=== PATIENT | male | born 1980 | race Caucasian/White ===

== ENCOUNTER 2018-04-14 10:19 | Emergency (ER) | payer BC ==
[~2018-04-14] VITALS: Ht 177.8 cm; Wt 113.4 kg
== END 2018-04-14 10:36 | disposition home or self-care (01) ==
LOC: ED 10:19
DX: T15.01XA Foreign body in cornea, right eye, initial encounter (principal); R03.0 Elevated blood-pressure reading, without diagnosis of hypertension; Z23 Encounter for immunization; Z88.1 Allergy status to other antibiotic agents; X58.XXXA Exposure to other specified factors, initial encounter; Y93.89 Activity, other specified; Y92.89 Other specified places as the place of occurrence of the external cause; Y99.8 Other external cause status